=== PATIENT | male | born 1940 | race Hispanic/Latino ===

== ENCOUNTER → 2018-02-10 | Outpatient (CLI) | payer OTHER ==
[~2018-02-10] MED LIST: REGADENOSON 0.4 MG/5 ML PF SYG IVP SCH
== END | disposition home or self-care (01) ==
LOC: SHCH 07:50
PROVIDERS: ATTEND Internal Medicine Cardiovascular Disease
DX: R00.1 Bradycardia, unspecified (principal)
CPT/HCPCS: 78452; 93017; 96374; A9500 ×2; J2785

== ENCOUNTER 2018-08-20 07:11 | Day surgery (SDC) | payer OTHER ==
[2018-08-17 13:33] VITALS: BP 156/78
[2018-08-17 13:38] LABS: BASOPHILS % (AUTO) 0.7 % (0.0-5.0); EOSINOPHILS % (AUTO) 0.5 % (0.0-8.0); HEMATOCRIT 41.4 % (42-54); LYMPHOCYTES % (AUTO) 14.3 % (21.0-51.0); MEAN CORPUSCULAR HGB CONC 32.7 g/dL (32.0-36.0); MEAN CORPUSCULAR VOLUME 94.8 fL (79-99); MONOCYTES % (AUTO) 8.4 % (3.0-13.0); NEUTROPHILS % (AUTO) 76.1 % (40.0-77.0); NUCLEATED RED BLOOD CELLS 0.1 % (0.0-0.19); PLATELET COUNT (AUTO) 217 K/uL (130-400); RED BLOOD CELL COUNT(AUTO) 4.37 MIL/uL (4.50-6.20); RED CELL DISTRIBUTION WIDTH 14.1 % (11.0-15.5); WHITE BLOOD COUNT (AUTO) 8.7 K/uL (4.8-10.8)
[2018-08-17 13:45] LABS: CREATININE 1.2 mg/dL (0.5-1.5); POTASSIUM 5.1 mmol/L (3.5-5.1)
[2018-08-17 13:46] LABS: INR 0.96 (0.85-1.15); PROTHROMBIN TIME 10.1 SEC (9.6-11.6)
[2018-08-17 13:49] LABS: APPEARANCE,URINE Clear (CLEAR); BILIRUBIN,URINE Negative (NEGATIVE); COLOR,URINE Yellow (YELLOW); GLUCOSE, URINE (UA) Negative (NEGATIVE); KETONES,URINE Negative (NEGATIVE); LEUKOCYTE ESTERASE ,URINE Trace (NEGATIVE); NITRATE,URINE Negative (NEGATIVE); OCCULT BLOOD,URINE Negative (NEGATIVE); PH,URINE 5.5 (5.0-8.0); PROTEIN,URINE Negative (NEGATIVE)
[2018-08-17 14:01] LABS: BACTERIA,URINE None Seen /HPF (None Seen); RBC,URINE None Seen /HPF (0-1); SQUAMOUS EPITHELIAL CELL,UR Rare /HPF (0-2); WBC,URINE 0-1 /HPF (0-1)
[~2018-08-20] VITALS: Ht 165.1 cm; Wt 68.6 kg
[2018-08-20] VITALS (16 sets, daily range): BP systolic 115–139; BP diastolic 49–73
[~2018-08-20 07:11] MED LIST changes: +AMLO5TAB7 PO; +FINA5TAB41 PO; +GENTAMICIN 80 MG/NS 100 ML PB 100 ML IV PRN; +LISI40TA4 PO; -REGADENOSON 0.4 MG/5 ML PF SYG IVP SCH; +TAMS0.4C32 PO
[2018-08-20] MEDS ORDERED: LACTATED RINGERS 1000ML 1,000 ML IV ONE (07:28)
[2018-08-20] MEDS: CEFTRIAXONE SODIUM 1 GM IVP PRN ×2 (08:06→08:30)
[2018-08-20] MEDS ORDERED: MIDAZOLAM HCL 1 MG/ML 2ML VIAL ONE (08:13)
[2018-08-20] MEDS ORDERED: PROPOFOL 10 MG/ML 20ML VIAL IV ONE (08:13)
[2018-08-20] MEDS ORDERED: FENTANYL CITRATE PF 50 MCG/1 ML 2ML VIAL ONE (08:13)
[2018-08-20] MEDS ORDERED: ONDANSETRON HCL 4 MG/2 ML VIAL ONE (08:13)
[2018-08-20] MEDS ORDERED: DEXAMETHASONE SOD PHOSPHATE 10MG/ML 1ML VIAL ONE (08:13)
[2018-08-20] MEDS ORDERED: NEOSTIGMINE 5MG/5ML SYR IV ONE (08:13)
[2018-08-20] MEDS ORDERED: LIDOCAINE PF 2% 5ML ABBOJECT ONE (08:13)
[2018-08-20] MEDS ORDERED: ROCURONIUM 10MG/1ML SYR 10 MG/ML ML ONE (08:13)
[2018-08-20] MEDS ORDERED: GLYCOPYRROLATE 1 MG/5 ML SYRINGE ONE (08:13)
== END 2018-08-20 11:53 | disposition home or self-care (01) ==
LOC: DAH 07:11
PROVIDERS: ATTEND Urology
DX: N40.1 Benign prostatic hyperplasia with lower urinary tract symptoms (principal); R35.1 Nocturia; I10 Essential (primary) hypertension; I44.4 Left anterior fascicular block
CPT/HCPCS: 36415; 52648; 71045; 80048; 81001; 82948; 85025; 85610; 87088; 93005; A4218; A4354; A4358; A4600; J0696; J1100; J1580; J2001; J2250; J2405; J2704; J2710; J3010; J3490; J7030; J7120

== ENCOUNTER 2024-06-16 15:17 | Emergency (ER) | payer OTHER ==
[~2024-06-16] VITALS: Ht 167.6 cm; Wt 59.0 kg
[~2024-06-16 15:17] MED LIST changes: +AMLO-257 PO; -AMLO5TAB7 PO; -GENTAMICIN 80 MG/NS 100 ML PB 100 ML IV PRN; -LISI40TA4 PO; +LISI40TA9 PO
[2024-06-16] MEDS: dexaMETHasone SOD PHOSPHATE 4 MG/ML 1ML VIAL IM ONE (16:30)
[2024-06-16] MEDS: acetaMINOPHEN 500 MG TABLET PO ONE (16:30)
[2024-06-16] MEDS ORDERED: ACET-66 PO (17:48)
[2024-06-16 18:07] VITALS: BP 163/97; PULSE 78; RESP 18; TEMP 98.1; O2SAT 97
== END 2024-06-16 18:09 | disposition home or self-care (01) ==
LOC: EDH 15:17
DX: M25.561 Pain in right knee (principal); M79.671 Pain in right foot; Z79.899 Other long term (current) drug therapy
CPT/HCPCS: 99284; 73630; 73562; 96372; J1100